=== PATIENT | male | born 1970 | race Caucasian/White ===

== ENCOUNTER 2016-07-04 16:42 | Emergency (ER) | payer OTHER ==
--- NOTE | 2016-07-04 17:31 | DIAGNOSTIC IMAGING REPORT ---
PROCEDURE: CT HEAD WITHOUT CONTRAST INDICATION: TRAUMA/INJURY TECHNIQUE: Axial CT images were acquired through the head. Coronal and sagittal reformations were created. COMPARISON: None. FINDINGS: No intracranial hemorrhage or extraaxial fluid collections. Ventricles are normal in size, shape and position. There is no mass, mass effect or midline shift. The wilkins-white matter differentiation is normal. There is no edema. The calvarium is intact. There are bilateral air-fluid levels in the maxillary sinuses. There is also fluid in the ethmoid sinuses. The orbits are normal. There is right occipital scalp edema IMPRESSION: 1. No CT evidence of acute intracranial process. 2. Bilateral maxillary and ethmoid sinusitis. 2. Findings discussed with Irvin at 05:[address] scans at this facility use dose modulation, iterative reconstruction, and/or weight-based dosing when appropriate to reduce radiation dose to as low as reasonably achievable.
--- NOTE | 2016-07-04 17:57 | ED CLINICAL REPORT ---
Clinical Report - Physicians/Mid Levels [facility] [address] [place] [address] 07/04/2016 16:43 Patient: NINI HODGE Time Seen: 16:59 Jul 04 2016. Arrived- By private vehicle. Historian- patient. CPT: ER phys charges level 4 (#[id number]). HISTORY OF PRESENT ILLNESS Chief Complaint: INJURY TO HEAD. Location of injuries- head. The injury occurred just prior to arrival. The patient sustained a blow. Occurred at work. ( This occurred (just over an hour ago). Mechanism of injury: a single blow. ( 2 1/2 lb sledge hammer fell about 12 feet and struck him on top of the head, doesn't know if there was a LOC but he only remembers getting up at some point). The patient had loss of consciousness.). The patient complains of moderate pain. The patient had uncertain duration loss of consciousness. REVIEW OF SYSTEMS No numbness, hearing loss, nausea, chest pain or weakness. No loss of vision, vomiting, difficulty breathing or laceration. All systems otherwise negative, except as recorded above. PAST HISTORY Back Surgery. Shoulder Surgery. Testicular. Problems: no known problems. Medications: Cough Relief Oral. Allergies: Nuts. SOCIAL HISTORY No alcohol use or drug use. ADDITIONAL NOTES The nursing notes have been reviewed. PHYSICAL EXAM Vital Signs: 07/04/2016 17:13 BP: 125/87. HR: 92. RR: 18. O2 saturation: 96%. Temp: 97.8 F. Pain level now: 10. Appearance: Alert. Patient in mild distress. Head: Vertex: moderate tenderness, mild swelling and small and deep abrasion of the posterior aspect of the vertex. No deformity. Eyes: Pupils equal, round and reactive to light. EOM intact. ENT: No dental injury. Pharynx normal. Neck: Painless ROM. Neck non-tender. CVS: Heart sounds normal. Pulses normal. Respiratory: Breath sounds normal. Chest nontender. Abdomen: Soft and nontender. Back: No tenderness. ROM normal. Skin: Skin intact. Skin warm. Normal skin color. Extremities: Normal inspection. Extremities atraumatic. Neuro: Oriented X 3. Mood/affect normal. Speech normal. No motor deficit. Normal gait. No sensory deficit. Reflexes normal. LABS, X-RAYS, AND EKG CT Head: No acute changes. No hemorrhage, no intracranial mass and no midline shift. (Bilateral maxillary sinusitis. Moderate.). Head CT performed without contrast. The study was independently viewed by me, interpreted by the radiologist and discussed with the radiologist. PROGRESS AND PROCEDURES Patient/family counseled. Disposition: Discharged. CLINICAL IMPRESSION Single contusion with soft tissue hematoma and abrasion to the head. INSTRUCTIONS Protect wound and keep wound area clean. Change dressing twice daily. Keep wounds dry. You may wash wounds briefly, then dry. Apply neosporin twice daily. Warnings: HEAD INJURY PRECAUTIONS: An observer must check on the patient every 4 hours for the next 24 hours to confirm that the patient responds as expected, is not confused, has no new weakness or numbness, and has no other problems. TETANUS: You were given a tetanus shot during your visit. Make a note for future reference. GENERAL WARNINGS: Return or contact your physician immediately if your condition worsens or changes unexpectedly, if not improving as expected, or if other problems arise. Your Current Medications: CONTINUE TAKING THE FOLLOWING MEDICATIONS: Cough Relief Oral. OTC Medications: Acetaminophen (available over the counter): take according to label instructions. Follow-up: Follow up with your doctor in one week as needed. Call for an appointment. Understanding of the discharge instructions verbalized by patient. (Electronically signed by Mukund Bryan MD 07/08/2016 17:29)
--- NOTE | 2016-07-04 17:57 | ED CLINICAL REPORT ---
Clinical Report - Physicians/Mid Levels [facility] [address] [place] [address] 07/04/2016 16:43 Patient: NINI HODGE Time Seen: 16:59 Jul 04 2016. Arrived- By private vehicle. Historian- patient. CPT: ER phys charges level 4 (#[id number]). HISTORY OF PRESENT ILLNESS Chief Complaint: INJURY TO HEAD. Location of injuries- head. The injury occurred just prior to arrival. The patient sustained a blow. Occurred at work. ( This occurred (just over an hour ago). Mechanism of injury: a single blow. ( 2 1/2 lb sledge hammer fell about 12 feet and struck him on top of the head, doesn't know if there was a LOC but he only remembers getting up at some point). The patient had loss of consciousness.). The patient complains of moderate pain. The patient had uncertain duration loss of consciousness. REVIEW OF SYSTEMS No numbness, hearing loss, nausea, chest pain or weakness. No loss of vision, vomiting, difficulty breathing or laceration. All systems otherwise negative, except as recorded above. PAST HISTORY Back Surgery. Shoulder Surgery. Testicular. Problems: no known problems. Medications: Cough Relief Oral. Allergies: Nuts. SOCIAL HISTORY No alcohol use or drug use. ADDITIONAL NOTES The nursing notes have been reviewed. PHYSICAL EXAM Vital Signs: 07/04/2016 17:13 BP: 125/87. HR: 92. RR: 18. O2 saturation: 96%. Temp: 97.8 F. Pain level now: 10. Appearance: Alert. Patient in mild distress. Head: Vertex: moderate tenderness, mild swelling and small and deep abrasion of the posterior aspect of the vertex. No deformity. Eyes: Pupils equal, round and reactive to light. EOM intact. ENT: No dental injury. Pharynx normal. Neck: Painless ROM. Neck non-tender. CVS: Heart sounds normal. Pulses normal. Respiratory: Breath sounds normal. Chest nontender. Abdomen: Soft and nontender. Back: No tenderness. ROM normal. Skin: Skin intact. Skin warm. Normal skin color. Extremities: Normal inspection. Extremities atraumatic. Neuro: Oriented X 3. Mood/affect normal. Speech normal. No motor deficit. Normal gait. No sensory deficit. Reflexes normal. LABS, X-RAYS, AND EKG CT Head: No acute changes. No hemorrhage, no intracranial mass and no midline shift. (Bilateral maxillary sinusitis. Moderate.). Head CT performed without contrast. The study was independently viewed by me, interpreted by the radiologist and discussed with the radiologist. PROGRESS AND PROCEDURES Patient/family counseled. Disposition: Discharged. CLINICAL IMPRESSION Single contusion with soft tissue hematoma and abrasion to the head. INSTRUCTIONS Protect wound and keep wound area clean. Change dressing twice daily. Keep wounds dry. You may wash wounds briefly, then dry. Apply neosporin twice daily. Warnings: HEAD INJURY PRECAUTIONS: An observer must check on the patient every 4 hours for the next 24 hours to confirm that the patient responds as expected, is not confused, has no new weakness or numbness, and has no other problems. TETANUS: You were given a tetanus shot during your visit. Make a note for future reference. GENERAL WARNINGS: Return or contact your physician immediately if your condition worsens or changes unexpectedly, if not improving as expected, or if other problems arise. Your Current Medications: CONTINUE TAKING THE FOLLOWING MEDICATIONS: Cough Relief Oral. OTC Medications: Acetaminophen (available over the counter): take according to label instructions. Follow-up: Follow up with your doctor in one week as needed. Call for an appointment. Understanding of the discharge instructions verbalized by patient. (Electronically signed by Mukund Bryan MD 07/08/2016 17:29)
--- NOTE | 2016-07-04 17:58 | ED NURSING NOTES ---
Clinical Report - Nurses Merged With [facility] [place] [address] [place] [address] 07/04/2016 16:43 Patient: NINI HODGE TRIAGE Triage time 17:02. Acuity: LEVEL 3. Chief Complaint: INJURY TO HEAD. Alert. No acute distress. ( awake, alert, oriented). RUBY COMA SCORE: Hamilton Coma Scale: 15- eyes open spontaneously (4); best verbal response- oriented x 4 (5); best motor response- obeys commands (6). --17:11 Robina Rivera R.N. 17:13 07/04/16. BP: 125/87. HR: 92. RR: 18. O2 saturation: 96%. Temp: 97.8 F (oral). Pain level now: 09/18. --17:15 Robina Rivera R.N. Height/Length: 66 inches Per Patient. --17:06 Robina Rivera R.N.. Weight: 83.9 kg. BMI: 29.9. --17:14 Robina Rivera R.N. Medications Cough Relief Oral. --17:05 Robina Rivera R.N. Allergies Nuts. --17:06 Robina Rivera R.N. History Arrived by private vehicle. Historian: patient. Accompanied by family. Primary physician (none). This occurred (just over an hour ago). Mechanism of injury: a single blow. ( 2 1/2 lb sledge hammer fell about 12 feet and struck him on top of the head, doesn't know if there was a LOC but he only remembers getting up at some point). The patient had loss of consciousness. SOCIAL HX: Smoker- current status unknown (no). No alcohol use or drug use. FALL RISK ASSESSMENT: Fall risk assessment completed. No fall risk identified. FUNCTIONAL ASSESSMENT: Functional assessment: no impairments noted. LEARNING NEEDS ASSESSMENT: The learning needs assessment revealed no barriers. --17:11 Robina Rivera R.N. PAST MEDICAL HX: Tetanus status: unknown. --17:15 Robina Rivera R.N. Occurred at home (in [place]). --17:19 Robina Rivera R.N. PROBLEMS: no known problems. ADDITIONAL SURGERIES: Back Surgery. Shoulder Surgery. Testicular. --17:14 Robina Rivera R.N. Assessment GENERAL / NEURO / PSYCH: Alert. Oriented X 4. Appears in no acute distress. Patient appears calm and cooperative. RESPIRATORY: Respirations not labored. SKIN: Skin is warm and dry. --17:11 Robina Rivera R.N. Interventions ID and allergy band on patient. To treatment room. --17:11 Robina Rivera R.N. PHYSICAL ASSESSMENT 17:07/04/16. Ambulatory to room. GENERAL / NEURO / PSYCH: Alert. Oriented X 4. Appears in no acute distress. HEENT: Head: signs of head trauma present. RESPIRATORY: Respirations not labored. SKIN: Skin is warm and dry. --17:08 Robina Rivera R.N. NURSING PROGRESS NOTES 17:07/04/16. Head of bed elevated. Call light placed in reach. Side rails up x 1. Bed placed in lowest position. Brakes of bed on. --17:08 Robina Rivera R.N. Patient transported to [facility] by stretcher with tech. --17:09 Robina Rivera R.N. 17:10 07/04/2016 Site #1 started via IV in the right antecubital space with an 20g angiocath, with aseptic technique and good blood return; one attempt. Blood drawn: rainbow set. Labeled in the presence of the patient (by Ibrahima Hilliard RN). --17:10 Robina Rivera R.N. Patient returned from NH by stretcher with tech. --17:15 Robina Rivera R.N. 17:16 07/04/16. The patient is calm and resting quietly. Overall patient status is the same- he states feels the same (states he is "kind of dizzy"). GENERAL / NEURO / PSYCH: Alert. Oriented X 4. RESPIRATORY: No respiratory distress. SKIN: Skin is warm and dry. --17:16 Robina Rivera R.N. Applied bulky dressing consisting of 4x4 gauze, following the application of antibiotic ointment (bacitracin). Secured with yung. --18:08 Angelique Daniel 18:10. Reassessment after procedure. He is resting quietly. Overall patient status is the same- he states feels the same (GCS 15). GENERAL / NEURO / PSYCH: Alert. Oriented X 4. RESPIRATORY: No respiratory distress. SKIN: Skin is warm and dry. --18:17 Robina Rivera R.N. 18:10 07/04/2016 TDAP IM 0.5 mL given. (Lot#: [id number], expiration date: 03/08/2018, [employer]: sanofi pasteur). Given in the left deltoid. Allergies verified and confirmed 5 rights. Vaccine information statement provided to the patient. --18:26 Robina Rivera R.N. DISPOSITION / DISCHARGE 18:10 07/04/2016 Site #1 removed upon discharge. Catheter intact. Bandaid applied. --18:26 Robina Rivera R.N. Departure time: 1610. Condition at departure: stable. No learning barriers present. Discharge instructions provided and reviewed with the patient. Patient verbalized understanding. Written instructions provided in Kitt[place]. The patient was discharged home and accompanied by family. He left the Emergency Department ambulatory and via private vehicle. FALL RISK ASSESSMENT: Fall risk assessment completed. No fall risk identified. --18:28 Robina Rivera R.N. 18:16 07/04/16. BP: 128/89. HR: 84. RR: 16. O2 saturation: 97% on room air. Pain level now: 09/18. --18:28 Robina Rivera R.N. Locked/Released at 07/04/2016 18:33 by Robina Rivera R.N.
--- NOTE | 2016-07-04 17:58 | ED NURSING NOTES ---
Clinical Report - Nurses [facility] [place] [address] 07/04/2016 16:43 Patient: NINI HODGE TRIAGE Triage time 17:02. Acuity: LEVEL 3. Chief Complaint: INJURY TO HEAD. Alert. No acute distress. ( awake, alert, oriented). RUBY COMA SCORE: [place] Coma Scale: 15- eyes open spontaneously (4); best verbal response- oriented x 4 (5); best motor response- obeys commands (6). --17:11 Robina Rivera R.N. 17:13 07/04/16. BP: 125/87. HR: 92. RR: 18. O2 saturation: 96%. Temp: 97.8 F (oral). Pain level now: 09/18. --17:15 Robina Rivera R.N. Height/Length: 66 inches Per Patient. --17:06 Robina Rivera R.N.. Weight: 83.9 kg. BMI: 29.9. --17:14 Robina Rivera R.N. Medications Cough Relief Oral. --17:05 Robina Rivera R.N. Allergies Nuts. --17:06 Robina Rivera R.N. History Arrived by private vehicle. Historian: patient. Accompanied by family. Primary physician (none). This occurred (just over an hour ago). Mechanism of injury: a single blow. ( 2 1/2 lb sledge hammer fell about 12 feet and struck him on top of the head, doesn't know if there was a LOC but he only remembers getting up at some point). The patient had loss of consciousness. SOCIAL HX: Smoker- current status unknown (no). No alcohol use or drug use. FALL RISK ASSESSMENT: Fall risk assessment completed. No fall risk identified. FUNCTIONAL ASSESSMENT: Functional assessment: no impairments noted. LEARNING NEEDS ASSESSMENT: The learning needs assessment revealed no barriers. --17:11 Robina Rivera R.N. PAST MEDICAL HX: Tetanus status: unknown. --17:15 Robina Rivera R.N. Occurred at home (in [place]). --17:19 Robina Rivera R.N. PROBLEMS: no known problems. ADDITIONAL SURGERIES: Back Surgery. Shoulder Surgery. Testicular. --17:14 Robina Rivera R.N. Assessment GENERAL / NEURO / PSYCH: Alert. Oriented X 4. Appears in no acute distress. Patient appears calm and cooperative. RESPIRATORY: Respirations not labored. SKIN: Skin is warm and dry. --17:11 Robina Rivera R.N. Interventions ID and allergy band on patient. To treatment room. --17:11 Robina Rivera R.N. PHYSICAL ASSESSMENT 17:07/04/16. Ambulatory to room. GENERAL / NEURO / PSYCH: Alert. Oriented X 4. Appears in no acute distress. HEENT: Head: signs of head trauma present. RESPIRATORY: Respirations not labored. SKIN: Skin is warm and dry. --17:08 Robina Rivrea R.N. NURSING PROGRESS NOTES 17:07/04/16. Head of bed elevated. Call light placed in reach. Side rails up x 1. Bed placed in lowest position. Brakes of bed on. --17:08 Robina Rivera R.N. Patient transported to [place] by stretcher with tech. --17:09 Robina Rivera R.N. 17:10 07/04/2016 Site #1 started via IV in the right antecubital space with an 20g angiocath, with aseptic technique and good blood return; one attempt. Blood drawn: rainbow set. Labeled in the presence of the patient (by Ibrahima Hilliard RN). --17:10 Robina Rivera R.N. Patient returned from [place] by stretcher with tech. --17:15 Robina Rivera R.N. 17:16 07/04/16. The patient is calm and resting quietly. Overall patient status is the same- he states feels the same (states he is "kind of dizzy"). GENERAL / NEURO / PSYCH: Alert. Oriented X 4. RESPIRATORY: No respiratory distress. SKIN: Skin is warm and dry. --17:16 Robina Rivera R.N. Applied bulky dressing consisting of 4x4 gauze, following the application of antibiotic ointment (bacitracin). Secured with yung. --18:08 Angelique Daniel 18:10. Reassessment after procedure. He is resting quietly. Overall patient status is the same- he states feels the same (GCS 15). GENERAL / NEURO / PSYCH: Alert. Oriented X 4. RESPIRATORY: No respiratory distress. SKIN: Skin is warm and dry. --18:17 Robina Rivera R.N. 18:10 07/04/2016 TDAP IM 0.5 mL given. (Lot#: [id number], expiration date: 03/08/2018, Pricing Lead: sanofi pasteur). Given in the left deltoid. Allergies verified and confirmed 5 rights. Vaccine information statement provided to the patient. --18:26 Robina Rivera R.N. DISPOSITION / DISCHARGE 18:10 07/04/2016 Site #1 removed upon discharge. Catheter intact. Bandaid applied. --18:26 Robina Rivera R.N. Departure time: 1610. Condition at departure: stable. No learning barriers present. Discharge instructions provided and reviewed with the patient. Patient verbalized understanding. Written instructions provided in Br[place]ian. The patient was discharged home and accompanied by family. He left the Emergency Department ambulatory and via private vehicle. FALL RISK ASSESSMENT: Fall risk assessment completed. No fall risk identified. --18:28 Robina Rivera R.N. 18:16 07/04/16. BP: 128/89. HR: 84. RR: 16. O2 saturation: 97% on room air. Pain level now: 09/18. --18:28 Robina Rivera R.N. Locked/Released at 07/04/2016 18:33 by Robina Rivera R.N.
--- NOTE | 2016-07-04 17:58 | ED ORDER SUMMARY ---
..... Patient: NINI OHDGE OrderSheet [facility] VisitID: [id number] [place] [address] 45y, M Registration Date/Time: 07/04/2016 ORDER SHEET Weight: 83.9 kg Allergies: Nuts GENERAL ORDERS: CT Head wo Cont Urgent (17:04 07/04/2016 Beatriz KARIMI) (Ack 17:06 Sergio) (17:10 Donnie) Dress Wounds (17:55 07/04/2016 Beatriz KARIMI) (Ack 17:56 Sergio) (18:33 Corina R.N.) MEDICATION ORDERS: Tdap IM 0.5 mL (per protocol) (17:55 07/04/2016 Beatriz KARIMI) (Ack 17:55 Corina R.N.) (18:26 Corina R.N.) IV FLUIDS: ORDER SHEET NOTES: [Electronically signed by Robina Rivera R.N. (18:33 07/04/2016)] [Electronically signed by Mukund Bryan MD (17:28 07/08/2016)] [Electronically locked/signed by Robina Rivera R.N. (18:33 07/04/2016)]
--- NOTE | 2016-07-04 17:58 | ED ORDER SUMMARY ---
..... Patient: NINI HODGE OrderSheet [facility] VisitID: [id number] [place] [address] 45y, M Registration Date/Time: 07/04/2016 ORDER SHEET Weight: 83.9 kg Allergies: Nuts GENERAL ORDERS: CT Head wo Cont Urgent (17:04 07/04/2016 Beatriz KARIMI) (Ack 17:06 Sergio) (17:10 Donnie) Dress Wounds (17:55 07/04/2016 Beatriz KARIMI) (Ack 17:56 Sergio) (18:33 Corina R.N.) MEDICATION ORDERS: Tdap IM 0.5 mL (per protocol) (17:55 07/04/2016 Beatriz KARIMI) (Ack 17:55 Corina R.N.) (18:26 Corina R.N.) IV FLUIDS: ORDER SHEET NOTES: [Electronically signed by Robina Rivera R.N. (18:33 07/04/2016)] [Electronically signed by Mukund Bryan MD (17:28 07/08/2016)] [Electronically locked/signed by Robina Rivera R.N. (18:33 07/04/2016)]
--- NOTE | 2016-07-08 17:29 | ED MAR SUMMARY ---
..... Medication Administration Record [facility] [address] [place] [address] Patient: NINI HODGE Visit ID: [id number] 45y, M Weight: 83.9 kg Height/Length: 66 in BMI: 29.9 ALLERGIES: Nuts Given 18:10 07/04/2016 Robina Rivera R.N. Medication Administered: TDAP [IM], Dose: 0.5 mL IM. Medication Ordered: Tdap IM 0.5 mL (per protocol).
--- NOTE | 2016-07-08 17:29 | ED DISCHARGE INSTRUCTIONS ---
Patient: NINI HODGE General Instructions [facility] VisitID: [id number] [place] [address] 45y, M Registration Date/Time: 07/04/2016 Single contusion with soft tissue hematoma and abrasion to the head. INSTRUCTIONS Protect wound and keep wound area clean. Change dressing twice daily. Keep wounds dry. You may wash wounds briefly, then dry. Apply neosporin twice daily. Warnings: HEAD INJURY PRECAUTIONS: An observer must check on the patient every 4 hours for the next 24 hours to confirm that the patient responds as expected, is not confused, has no new weakness or numbness, and has no other problems. TETANUS: You were given a tetanus shot during your visit. Make a note for future reference. GENERAL WARNINGS: Return or contact your physician immediately if your condition worsens or changes unexpectedly, if not improving as expected, or if other problems arise. Your Current Medications: CONTINUE TAKING THE FOLLOWING MEDICATIONS: Cough Relief Oral. OTC Medications: Acetaminophen (available over the counter): take according to label instructions. Follow-up: Follow up with your doctor in one week as needed. Call for an appointment. Understanding of the discharge instructions verbalized by patient. ADDITIONAL INFORMATION Scalp Contusion [No Wake-Up] A scalp contusion is a bruise with swelling and sometimes bleeding under the skin. The swelling should start to go down within two days. Although there is no sign of a serious injury at this time, symptoms may appear later. These could be a sign of a more serious problem (bruising or bleeding in the brain). Therefore, watch for the warning signs below. Home Care: During the next 24 hours someone must stay with you to check for the signs below. It is not necessary to stay awake or be awakened during the night. If you have swelling of the face or scalp, apply an ice pack (ice cubes in a plastic bag, wrapped in a towel) for 20 minutes. Do this every 1-2 hours until the swelling starts to go down. You may use acetaminophen (Tylenol) or ibuprofen (Motrin, Advil) to control pain, unless another pain medicine was prescribed. [ NOTE : If you have chronic liver or kidney disease or ever had a stomach ulcer or GI bleeding, talk with your doctor before using these medicines.] For the next 24 hours: Do not take alcohol, sedatives or medicines that make you sleepy. Do not drive or operate machinery. Avoid strenuous activities. No lifting or straining. If you have had any symptoms of a concussion today (nausea, vomiting, dizziness, confusion, headache, memory loss or if you were knocked out), do not return to sports or any activity that could result in another head injury until all symptoms are gone and you have been cleared by your doctor. A second head injury before fully recovering from the first one can lead to serious brain injury. Follow Up with your doctor if symptoms are not improving after 24 hours, or as directed. [NOTE: Any X-rays or CT scans taken will be reviewed by a radiologist. You will be notified of any new findings that may affect your care.] Get Prompt Medical Attention if any of the following occur: Repeated vomiting Severe or worsening headache or dizziness Unusual drowsiness, or unable to awaken as usual Confusion or change in behavior or speech, memory loss, blurred vision Convulsion (seizure) Increasing scalp or face swelling Redness, warmth or pus from the swollen area Fluid drainage or bleeding from the nose or ears Fever of 100.4F(38C) or higher, or as directed by your healthcare provider Abrasions Abrasions are skin scrapes. Their treatment depends on how large and deep the abrasion is. Home Care: If you were given a bandage, change it once a day. If your bandage sticks to the wound, soak it in warm water until it loosens. Wash the area with soap and water to remove all the cream/ointment. You may do this in a sink, under a tub faucet or shower. Rinse off the soap and pat dry with a clean towel. Reapply cream/ointment according to your doctor's instructions. This will prevent infection and help prevent the bandage from sticking. Cover the wound with a fresh non-stick bandage (Telfa). Repeat steps 1 to 4 daily, or as directed by your doctor. If the bandage becomes wet or dirty, change it as soon as possible. You may use acetaminophen (Tylenol) or ibuprofen (Motrin, Advil) to control pain, unless another pain medicine was prescribed. [ NOTE : If you have chronic liver or kidney disease or ever had a stomach ulcer or GI bleeding, talk with your doctor before using these medicines.] Do not use ibuprofen in children under six months of age. Follow Up with your physician or this facility as directed by our staff. Most skin wounds heal within ten days. However, an infection may occur despite proper treatment. Therefore, look for the early signs of infection listed below. Get Prompt Medical Attention if any of the following occur: Increasing pain in the wound Increasing redness or swelling Pus coming from the wound Fever of 100.4F (38C) or higher, or as directed by your healthcare provider Head Injury, No Wake-Up (Adult) You have had a head injury. It does not appear serious at this time. Symptoms of a more serious problem (concussion, bruising, or bleeding in the brain) may appear later. Therefore, watch for the WARNING SIGNS listed below. Home Care: Your healthcare provider will tell you whether its okay to drive. If so, you can drive yourself home. For the next day or so, be careful when driving or using heavy machinery until you are sure you have no delayed symptoms. During the next 24 hours someone must stay with you to check for the signs below. It is not necessary to stay awake or be awakened during the night. If you have swelling of the face or scalp, apply an ice pack (ice cubes in a plastic bag, wrapped in a towel) for 20 minutes. Do this every 1-2 hours until the swelling starts to go down. Do not use aspirin or ibuprofen (Motrin, Advil) after a head injury.You may use acetaminophen (Tylenol)to control pain, unless another pain medicine was prescribed. [NOTE: If you have chronic liver or kidney disease or ever had a stomach ulcer or GI bleeding, talk with your doctor before using these medicines.] For the next 24 hours: Do not take alcohol, sedatives or medicines that make you sleepy. Avoid strenuous activities. No lifting or straining. If you have had any symptoms of a concussion today (nausea, vomiting, dizziness, confusion, headache, memory loss or if you were knocked out), do not return to sports or any activity that could result in another head injury until all symptoms are gone and you have been cleared by your doctor. A second head injury before fully recovering from the first one can lead to serious brain injury. Follow Up with your doctor if symptoms are not improving after 24 hours, or as directed. [NOTE: A radiologist will review any X-rays or CT scans that were taken. We will notify you of any new findings that may affect your care.] Get Prompt Medical Attention if any of the followingWARNING SIGNS occur: Repeated vomiting Severe or worsening headache or dizziness Unusual drowsiness, or unable to awaken as usual Confusion or change in behavior or speech, memory loss, blurred vision Convulsion (seizure) Increasing scalp or face swelling Redness, warmth or pus from the swollen area Fluid drainage or bleeding from the nose or ears You have been given the following additional information: Scalp Contusion, No Wake Up Abrasion HEAD INJURY, No Wake-Up (Adult) (Electronically signed by Mukund Bryan MD 07/08/2016 17:29)
--- NOTE | 2016-07-08 17:29 | ED MAR SUMMARY ---
..... Medication Administration Record [facility] [address] [place] [address] Patient: NINI HODGE Visit ID: [id number] 45y, M Weight: 83.9 kg Height/Length: 66 in BMI: 29.9 ALLERGIES: Nuts Given 18:10 07/04/2016 Robina Rviera R.N. Medication Administered: TDAP [IM], Dose: 0.5 mL IM. Medication Ordered: Tdap IM 0.5 mL (per protocol).
--- NOTE | 2016-07-08 17:29 | ED MED RECONCILIATION SUMMARY ---
Patient: NINI HODGE Medication Reconciliation Report [facility] VisitID: [id number] [address] [place] [address] 45y, M Registration Date/Time: 07/04/2016 Weight: 83.9 kg Height/Length: 66 in. BMI: 29.9 ALLERGIES: Nuts The patient's Home Medications are listed below: CONTINUE TAKING THE FOLLOWING MEDICATIONS: Cough Relief Oral The source(s) of the original Home Medication information: Not obtained. The following Medications were given to the patient in the Emergency Department: TDAP [IM] IM 0.5 mL, administered: 07/04/2016 6:10:00 PM The following Medications were prescribed to the patient: Acetaminophen (available over the counter): take according to label instructions. -- Mukund Bryan MD
--- NOTE | 2016-07-08 17:29 | ED MED RECONCILIATION SUMMARY ---
Patient: NINI HODGE Medication Reconciliation Report [facility] VisitID: [id number] [address] [place] [address] 45y, M Registration Date/Time: 07/04/2016 Weight: 83.9 kg Height/Length: 66 in. BMI: 29.9 ALLERGIES: Nuts The patient's Home Medications are listed below: CONTINUE TAKING THE FOLLOWING MEDICATIONS: Cough Relief Oral The source(s) of the original Home Medication information: Not obtained. The following Medications were given to the patient in the Emergency Department: TDAP [IM] IM 0.5 mL, administered: 07/04/2016 6:10:00 PM The following Medications were prescribed to the patient: Acetaminophen (available over the counter): take according to label instructions. -- Mukund Bryan MD
== END 2016-07-04 18:10 | disposition home or self-care (01) ==
LOC: ED SRH 16:42
DX: S00.93XA Contusion of unspecified part of head, initial encounter (principal); W20.8XXA Other cause of strike by thrown, projected or falling object, initial encounter; Y93.9 Activity, unspecified; Y92.9 Unspecified place or not applicable; Y99.0 Civilian activity done for income or pay